=== PATIENT | male | born 1930 | race Caucasian/White ===

== ENCOUNTER 2016-11-05 04:04 | Emergency (ER) | payer MEDICARE ==
[~2016-11-05] VITALS: Ht 188 cm; Wt 77.3 kg
[~2016-11-05 04:04] MED LIST: FINA5TAB9 PO; KLO5T PO; LOSA100T29 PO
[2016-11-05 04:24] VITALS: BP 175/82; PULSE 87; RESP 16; O2SAT 96
--- NOTE | 2016-11-05 04:49 | ED.REPORT ---
HPI- Male Date of Service Nov 05, 2016 ED Provider: Edmund Mora MD Patient is a demented 85 year old male with indwelling catheter and a history of ureteral cancer s/p resection, ureteral strictures, BPH, and recurrent UTIs who presents to the ED due to urinary retention after having his catheter replaced yesterday. He reports associated abdominal discomfort but denies any other symptoms. He planned to follow-up with urology today, but he become so uncomfortable that he could not wait that long. Nursing Notes Stated Complaint: URINARY RETENTION Chief Complaint: Male Abdominal Pain Nursing Notes Reviewed: Yes Allergies: Coded Allergies: ciprofloxacin (Verified Allergy, Unknown, anaphylaxis, 09/25/15) hydrochlorothiazide (Verified Allergy, Unknown, 09/25/15) lisinopril (Verified Allergy, Unknown, rash, 09/25/15) Scheduled Finasteride (Finasteride) 5 Mg Tablet 5 MG PO DAILY Losartan Potassium (Losartan Potassium) 100 Mg Tablet 50 MG PO DAILY Scheduled PRN Clonazepam (Clonazepam) 0.5 Mg Tablet 0.5 MG PO BID PRN PRN For Anxiety General Time Seen by MD: 04:48 Chief Complaint Unable to urinate, Urinary catheter problem Hx Obtained From: Patient Arrived By: Ambulance Onset Occurred: Yesterday Symptom Duration: Since onset Location: : Abdomen lower Quality: Painful Severity: Current: Moderate Severity: Maximum: Moderate Recent Healthcare: Recent doctor visit Similar Sx Previous: Yes Past Medical History Past Medical History ureteral cancer with recurrent bladder tumor, s/p resection urethral strictures BPH urinary catheter with frequent UTIs hypertension dementia Past Surgical History resection of bladder tumor and ureteral cancer multiple cystocopies due to urethral strictures Smoking History Former Smoker Social History Other Social History: Good social support, , Local resident Ambulatory Status Independent Review of Systems Unable to Obtain ROS Mental status (limited by dementia) GI: Reports: Abdominal pain Male: Reports Urination decreased Physical Exam Initial Vital Signs Vital Signs (First) Date Time Temp Pulse Resp B/P Pulse Ox O2 Delivery O2 Flow Rate FiO2 11/05/16 04:24 36.1 87 16 175/82 96 Room Air Initial VS: Reviewed, Vital signs normal Extremities: Vascular intact, Neuro intact Skin: Warm, Dry, No cyanosis Neurologic: Alert, Nonfocal Psychiatric: Mood/affect normal, Behavior normal, Normal thought content Male Genitourinary: Penis NL, No meatal blood (meatis is normal) catheter in place, not draining General/Constitutional: Awake, Alert, No acute distress pleasantly demented Abdomen: Atraumatic Tenderness/Guarding/Rebound: Positive: Tender suprapubic (with fullness) Head / Eyes: Atraumatic, Normocephalic, PERRL ENT: Airway patent Neck: Supple, Non-tender Respiratory / Chest: No respiratory distress, No stridor Cardiovascular: Heart rate NL, Regular rhythm Interpretation & Diagnostics Interpretation & Diagnostics: Bladder Scanner: 925mL Re-Eval/Medical Decision Med Decision/Clinical Course 85-year-old male with a plugged Sal[place] catheter which was removed and replaced without difficulty. Lower abdominal pain and fullness resolved completely with drainage of the bladder. Source of Hx: Old records Re-Evaluation/Progress : Time of Eval: 05:04 Patient Status: Condition improved Re-Evaluation/Progress Note: Rechecked the patient, who is improved after catheter was replaced. Abdomen is nontender. His will drive him home. Patient understands and agrees with the plan to be discharged home. Discharge instructions and follow-up discussed. All questions were addressed. Return to the ED warnings given. Counseled Regarding: Diagnosis, Need for follow-up, When/why to return to ED Discharge & Departure Impression: Primary Impression: Urinary retention Additional Impression: Salinas catheter problem Encounter type: subsequent encounter Qualified Code: T83.9XXD - Unspecified complication of genitourinary prosthetic device, implant and graft, subsequent encounter Disposition: Home Discharge Condition All VS Reviewed: Yes Condition: Stable Patient Instructions: How to Care for Your Sal[place] Catheter (ED), Urinary Retention in Men (ED) Additional Instructions: Your catheter was blocked by a little clot in the tip. The catheter is replaced and now the urine is flowing freely. Recheck with your primary doctor as needed. Referrals: Kerry Quiñonez (PCP) Scribe Attestation Portions of this note were transcribed by Tracey Kraus. I, Dr. Mora personally performed the history, physical exam and medical decision-making; I reviewed and confirmed the accuracy of the information in the transcribed note. Signed by: Wilbert Gonzalez, 11/05/2016 0587 copies to: Kerry Quiñonez Howard L MD Nov 05, 2016 04:49 Tracey Kraus Nov 05, 2016 04:56
== END 2016-11-05 05:31 | disposition home or self-care (01) ==
LOC: EDUNIT# 04:04 → EDBD 04:04 → SED 04:04
DX: R33.9 Retention of urine, unspecified (principal); T83.091D Other mechanical complication of indwelling urethral catheter, subsequent encounter; Y84.6 Urinary catheterization as the cause of abnormal reaction of the patient, or of later complication, without mention of misadventure at the time of the procedure; Y93.89 Activity, other specified; Y92.89 Other specified places as the place of occurrence of the external cause; Y99.8 Other external cause status; I10 Essential (primary) hypertension; F03.90 Unspecified dementia, unspecified severity, without behavioral disturbance, psychotic disturbance, mood disturbance, and anxiety; Z98.890 Other specified postprocedural states; Z87.891 Personal history of nicotine dependence; Z88.1 Allergy status to other antibiotic agents; Z88.8 Allergy status to other drugs, medicaments and biological substances
CPT/HCPCS: 51702; 81000; 99284; G0463